=== PATIENT | female | born 1980 | race Caucasian/White ===

== ENCOUNTER 2018-11-09 05:39 | Inpatient (IN) | payer BC, OTHER ==
[~2018-11-09] VITALS: Ht 172.7 cm; Wt 86.4 kg
[~2018-11-09 05:39] MED LIST: IBUP-1222 PO; OXYC-302 PO; iron PO
[2018-11-09 05:45] VITALS: BP 112/63
[2018-11-09] MEDS ORDERED: LACTATED RINGERS 1,000 ML IV PRN (05:58)
[2018-11-09] MEDS ORDERED: MAGNESIUM SULF. PMX 20GM/500ML 500 ML IV ONE (06:00)
[2018-11-09] MEDS ORDERED: BETAMETHASONE 6 MG/ML, 5ML IM ONE (06:00)
[2018-11-09] MEDS: BETAMETHASONE 6 MG/ML, 5ML IM SCH (06:18)
[2018-11-09 06:33] LABS: BASOPHILS # (AUTO) 0.07 x10^3/uL (0-0.1); BASOPHILS % (AUTO) 1 % (0-1); EOSINOPHILS # (AUTO) 0.13 x10^3/uL (0-0.4); EOSINOPHILS % (AUTO) 2 % (1-7); LYMPHOCYTES # (AUTO) 1.79 x10^3/uL (1-3.4); LYMPHOCYTES % (AUTO) 21 % (22-44); MD NO; MEAN CORPUSCULAR HEMOGLOBIN 34.2 pg (27.0-34.8); MEAN CORPUSCULAR HGB CONC 35.5 g/dL (32.4-35.8); MEAN CORPUSCULAR VOLUME 96.5 fL (80-100); MEAN PLATELET VOLUME 6.9 fL (7.4-10.4); MONOCYTES # (AUTO) 0.47 x10^3/uL (0.2-0.8); MONOCYTES % (AUTO) 5 % (2-9); NEUTROPHILS # (AUTO) 6.28 x10^3/uL (1.8-6.8); NEUTROPHILS % (AUTO) 72 % (42-75); PLATELET COUNT 240 x10^3/uL (130-400); RED BLOOD COUNT 3.86 x10^6/uL (3.82-5.3); RED CELL DISTRIBUTION WIDTH 13.2 % (9.6-15.2)
[2018-11-09 06:38] LABS: INTERNATIONAL NORMALIZED RATIO 0.99 (0.93-1.1); PROTHROMBIN TIME 10.5 Seconds (9.6-11.5)
[2018-11-09] MEDS ORDERED: PLEASE ENTER HEIGHT AND WEIGHT MC SCH (07:00)
[2018-11-09] MEDS: LACTATED RINGERS 1,000 ML IV SCH ×2 (09:20→19:37)
[2018-11-09] MEDS ORDERED: ACETAMINOPHEN 325 MG TABLET ONE (17:47)
[2018-11-09] MEDS: ACETAMINOPHEN 325 MG TABLET PO PRN (17:48)
[2018-11-09 19:30] VITALS: BP 112/55
[2018-11-09] MEDS ORDERED: PRENATAL VIT/IRON/FA 1 EACH TABLET ONE (20:33)
[2018-11-09] MEDS ORDERED: FERROUS SULFATE 325 MG TABLET ONE (20:33)
[2018-11-09] MEDS: PRENATAL VIT/IRON/FA 1 EACH TABLET PO SCH (20:35)
[2018-11-09] MEDS: FERROUS SULFATE 325 MG TABLET PO SCH (20:35)
[2018-11-10] MEDS: BETAMETHASONE 6 MG/ML, 5ML IM SCH (06:21)
[2018-11-10] MEDS ORDERED: FERROUS SULFATE 325 MG TABLET ONE ×2 (08:15→20:10)
[2018-11-10] MEDS: FERROUS SULFATE 325 MG TABLET PO SCH ×2 (08:17→20:20)
[2018-11-10] MEDS ORDERED: ACETAMINOPHEN 325 MG TABLET ONE (19:04)
[2018-11-10] MEDS: ACETAMINOPHEN 325 MG TABLET PO PRN (19:14)
[2018-11-10] MEDS ORDERED: PRENATAL VIT/IRON/FA 1 EACH TABLET ONE (20:10)
[2018-11-10] MEDS: PRENATAL VIT/IRON/FA 1 EACH TABLET PO SCH (20:20)
[2018-11-10] MEDS ORDERED: ASPIRIN 81 MG TABLET CHEW PO SCH (21:00)
[2018-11-10] MEDS ORDERED: SODIUM CHLORIDE FLUSH 3ML SYRINGE IVF SCH (21:00)
[2018-11-11] MEDS ORDERED: FENTANYL/BUPIV./NS/PF 250 ML EPIDCONT SCH (07:44)
[2018-11-11] MEDS ORDERED: ASPI-515 PO (07:51)
[2018-11-11 08:25] VITALS: BP 108/63
[2018-11-11] MEDS ORDERED: ASPIRIN 81 MG TABLET CHEW PO SCH (09:00)
== END 2018-11-11 08:40 | disposition home or self-care (01) | DRG 833 ==
LOC: LDOP 05:39 → LDIP 06:01
PROVIDERS: ADMIT Obstetrics & Gynecology; ATTEND Obstetrics & Gynecology
PROC: 4A0HX4Z Measurement of Products of Conception, Cardiac Electrical Activity, External Approach (ICD-10-PCS; principal; 2018-11-09)
DX: O44.13 Complete placenta previa with hemorrhage, third trimester (principal); Z3A.28 28 weeks gestation of pregnancy
CPT/HCPCS: 36415; 85025; 85610; 85730; 86850; 86870; 86900; 86922; 86923; G0378; J0702; J7120

== ENCOUNTER 2019-01-05 16:48 | Outpatient (CLI) | payer OTHER ==
[~2019-01-05] VITALS: Ht 172.7 cm; Wt 93.2 kg
[~2019-01-05 16:48] MED LIST changes: +ASPI-515 PO
[2019-01-05 16:51] VITALS: BP 125/68
== END 2019-01-05 18:30 | disposition home or self-care (01) ==
LOC: LDOP 16:48
PROVIDERS: ATTEND Obstetrics & Gynecology
DX: O32.2XX0 Maternal care for transverse and oblique lie, not applicable or unspecified (principal); Z3A.36 36 weeks gestation of pregnancy
CPT/HCPCS: 59025; 76815; 99211; G0463

== ENCOUNTER 2019-01-10 05:11 | Inpatient (IN) | payer BC, OTHER ==
[~2019-01-10] VITALS: Ht 172.7 cm; Wt 93.2 kg
[2019-01-10] MEDS ORDERED: LACTATED RINGERS 1,000 ML IVBOLUS ONE (05:30)
[2019-01-10] MEDS ORDERED: METOCLOPRAMIDE 5 MG/ML, 2ML IV ONE (05:30)
[2019-01-10] MEDS ORDERED: SODIUM CITRATE/CITRIC ACID 30 ML UDC PO ONE (05:30)
[2019-01-10] MEDS ORDERED: NEWBORN KIT ONE (05:45)
[2019-01-10] MEDS ORDERED: METOCLOPRAMIDE 5 MG/ML, 2ML ONE (05:45)
[2019-01-10] MEDS ORDERED: OXYTOCIN 30U/ 0.9% NaCL 500ML 500 ML ONE (05:45)
[2019-01-10] MEDS ORDERED: SODIUM CITRATE/CITRIC ACID 30 ML UDC ONE (05:45)
[2019-01-10 05:47] LABS: BASOPHILS # (AUTO) 0.05 x10^3/uL (0-0.1); BASOPHILS % (AUTO) 1 % (0-1); EOSINOPHILS # (AUTO) 0.12 x10^3/uL (0-0.4); EOSINOPHILS % (AUTO) 1 % (1-7); LYMPHOCYTES # (AUTO) 1.63 x10^3/uL (1-3.4); LYMPHOCYTES % (AUTO) 20 % (22-44); MD NO; MEAN CORPUSCULAR HEMOGLOBIN 32.9 pg (27.0-34.8); MEAN CORPUSCULAR HGB CONC 34.1 g/dL (32.4-35.8); MEAN CORPUSCULAR VOLUME 96.6 fL (80-100); MEAN PLATELET VOLUME 6.8 fL (7.4-10.4); MONOCYTES # (AUTO) 0.55 x10^3/uL (0.2-0.8); MONOCYTES % (AUTO) 7 % (2-9); NEUTROPHILS # (AUTO) 5.86 x10^3/uL (1.8-6.8); NEUTROPHILS % (AUTO) 71 % (42-75); PLATELET COUNT 260 x10^3/uL (130-400); RED BLOOD COUNT 4.08 x10^6/uL (3.82-5.3); RED CELL DISTRIBUTION WIDTH 12.9 % (9.6-15.2)
[2019-01-10 06:14] VITALS: BP 114/68
[2019-01-10] MEDS ORDERED: morphine SULFATE/PF 0.5 MG/ML, 10ML ONE (07:30)
[2019-01-10] MEDS ORDERED: ONDANSETRON 2MG/ML, 2ML ONE (07:32)
[2019-01-10] MEDS ORDERED: OXYTOCIN 10 UNITS/ML, 1ML ONE (07:32)
[2019-01-10] MEDS ORDERED: DEXAMETHASONE 4 MG/ML, 1ML ONE (07:32)
[2019-01-10] MEDS ORDERED: CEFAZOLIN 1,000 MG ONE (07:33)
[2019-01-10] MEDS ORDERED: WATER-INJECTION,STERILE 10 ML IV ONE (07:33)
[2019-01-10] MEDS: LACTATED RINGERS 1,000 ML IV SCH ×5 (07:44→23:44)
[2019-01-10] MEDS ORDERED: MEASLES,MUMPS&RUBELLA VACC/PF 0.5 ML SQ-VACC PRN (08:00)
[2019-01-10] MEDS ORDERED: MISOPROSTOL 200 MCG TABLET PR PRN (08:00)
[2019-01-10] MEDS ORDERED: IBUPROFEN 600 MG TABLET PO PRN (08:00)
[2019-01-10] MEDS ORDERED: DIPH,PERTUSS(ACELL),TET VAC/PF NC IM-VACC PRN (08:00)
[2019-01-10] MEDS ORDERED: ACETAMINOPHEN 325 MG TABLET PO PRN ×2 (08:00)
[2019-01-10] MEDS ORDERED: CALCIUM CARBONATE 500 MG TAB.CHEW PO PRN (08:00)
[2019-01-10] MEDS ORDERED: ONDANSETRON 2MG/ML, 2ML IV PRN (08:00)
[2019-01-10] MEDS ORDERED: MEPERIDINE/PF 50 MG/ML ONE (08:52)
[2019-01-10] MEDS: PRENATAL VIT/IRON/FA 1 EACH TABLET PO SCH (09:00)
[2019-01-10] MEDS: OXYTOCIN 30U/ 0.9% NaCL 500ML 500 ML IV SCH ×2 (09:45→17:44)
[2019-01-10] MEDS ORDERED: OXYcodone/APAP 5/325MG TABLET ONE (10:11)
[2019-01-10] MEDS: OXYcodone/APAP 5/325MG TABLET PO PRN (10:15)
[2019-01-10 10:38] LABS: MEAN CORPUSCULAR HEMOGLOBIN 32.8 pg (27.0-34.8); MEAN CORPUSCULAR HGB CONC 34.3 g/dL (32.4-35.8); MEAN CORPUSCULAR VOLUME 95.8 fL (80-100); MEAN PLATELET VOLUME 6.8 fL (7.4-10.4); PLATELET COUNT 234 x10^3/uL (130-400); RED BLOOD COUNT 4.09 x10^6/uL (3.82-5.3); RED CELL DISTRIBUTION WIDTH 13.9 % (9.6-15.2)
[2019-01-10 11:20] LABS: BASOPHILS # (AUTO) 0.04 x10^3/uL (0-0.1); BASOPHILS % (AUTO) 0 % (0-1); EOSINOPHILS # (AUTO) 0.02 x10^3/uL (0-0.4); EOSINOPHILS % (AUTO) 0 % (1-7); LYMPHOCYTES # (AUTO) 0.77 x10^3/uL (1-3.4); LYMPHOCYTES % (AUTO) 6 % (22-44); MD SCAN; MONOCYTES # (AUTO) 0.15 x10^3/uL (0.2-0.8); MONOCYTES % (AUTO) 1 % (2-9); NEUTROPHILS % (AUTO) 93 % (42-75)
[2019-01-10 11:30] VITALS: BP 95/74
[2019-01-10] MEDS ORDERED: NO SEDATIVES, TRANQUILIZERS OR ANTIEMETICS XX SCH (12:00)
[2019-01-10] MEDS ORDERED: morphine SULFATE 10 MG/ML, 1ML IVPush PRN (12:00)
[2019-01-10] MEDS ORDERED: NALOXONE 0.4 MG/ML, 1ML IV PRN (12:00)
[2019-01-10] MEDS ORDERED: DIPHENHYDRAMINE 50 MG/ML, 1ML IV PRN (12:00)
[2019-01-10] MEDS: KETOROLAC 30 MG/1 ML IV SCH ×2 (13:07→20:02)
[2019-01-10 16:09] LABS: BASOPHILS # (AUTO) 0.05 x10^3/uL (0-0.1); BASOPHILS % (AUTO) 0 % (0-1); EOSINOPHILS # (AUTO) 0.05 x10^3/uL (0-0.4); EOSINOPHILS % (AUTO) 0 % (1-7); LYMPHOCYTES # (AUTO) 0.97 x10^3/uL (1-3.4); LYMPHOCYTES % (AUTO) 7 % (22-44); MD NO; MEAN CORPUSCULAR HEMOGLOBIN 33.2 pg (27.0-34.8); MEAN CORPUSCULAR HGB CONC 35.1 g/dL (32.4-35.8); MEAN CORPUSCULAR VOLUME 94.4 fL (80-100); MEAN PLATELET VOLUME 6.7 fL (7.4-10.4); MONOCYTES # (AUTO) 0.34 x10^3/uL (0.2-0.8); MONOCYTES % (AUTO) 2 % (2-9); NEUTROPHILS # (AUTO) 12.98 x10^3/uL (1.8-6.8); NEUTROPHILS % (AUTO) 90 % (42-75); PLATELET COUNT 257 x10^3/uL (130-400); RED BLOOD COUNT 3.75 x10^6/uL (3.82-5.3)
[2019-01-10 16:15] VITALS: BP 112/72
[2019-01-10 20:00] VITALS: BP 102/70
[2019-01-10 20:56] VITALS: BP 102/71
[2019-01-10] MEDS ORDERED: RHOGAM FROM BLOOD BANK 1 NOTE EA IM/IV ONE (21:30)
[2019-01-11 00:15] VITALS: BP 99/64
[2019-01-11] MEDS: DOCUSATE 100 MG CAPSULE PO PRN ×3 (01:14→19:50)
[2019-01-11] MEDS: OXYcodone/APAP 5/325MG TABLET PO PRN ×5 (01:14→22:00)
[2019-01-11] MEDS: KETOROLAC 30 MG/1 ML IV SCH ×4 (01:55→19:50)
[2019-01-11] MEDS: OXYTOCIN 30U/ 0.9% NaCL 500ML 500 ML IV SCH (03:44)
[2019-01-11] MEDS: LACTATED RINGERS 1,000 ML IV SCH (03:44)
[2019-01-11 04:00] VITALS: BP 96/58
[2019-01-11] MEDS: PRENATAL VIT/IRON/FA 1 EACH TABLET PO SCH (07:40)
[2019-01-11 08:00] VITALS: BP 97/70
[2019-01-11] MEDS: SIMETHICONE 80 MG CHEW TAB PO PRN (17:47)
[2019-01-11 20:00] VITALS: BP 117/76
[2019-01-12] MEDS: KETOROLAC 30 MG/1 ML IV SCH ×2 (03:10→08:49)
[2019-01-12] MEDS: OXYcodone/APAP 5/325MG TABLET PO PRN ×2 (03:15→08:49)
[2019-01-12] MEDS: SIMETHICONE 80 MG CHEW TAB PO PRN ×2 (03:15→08:49)
[2019-01-12 07:45] VITALS: BP 102/56
[2019-01-12] MEDS ORDERED: KETOROLAC 30 MG/1 ML ONE (08:42)
[2019-01-12] MEDS: PRENATAL VIT/IRON/FA 1 EACH TABLET PO SCH (08:49)
[2019-01-12] MEDS: DOCUSATE 100 MG CAPSULE PO PRN (08:49)
[2019-01-12] MEDS ORDERED: PREN1TAB98 PO (11:48)
[2019-01-12] MEDS ORDERED: DOCU-131 PO (11:49)
[2019-01-12] MEDS ORDERED: IBUP-1223 PO (11:52)
[2019-01-12] MEDS ORDERED: OXYC-302 PO (11:53)
== END 2019-01-12 14:10 | disposition home or self-care (01) | DRG 787 ==
LOC: LDIP 05:11 → 2NW 11:09
PROVIDERS: ADMIT Obstetrics & Gynecology; ATTEND Obstetrics & Gynecology
PROC: 10D00Z1 Extraction of Products of Conception, Low, Open Approach (ICD-10-PCS; principal; 2019-01-10)
PROC: 0UB90ZZ Excision of Uterus, Open Approach (ICD-10-PCS; 2019-01-10)
PROC: 30233S1 Transfusion of Nonautologous Globulin into Peripheral Vein, Percutaneous Approach (ICD-10-PCS; 2019-01-10)
PROC: 30233N1 Transfusion of Nonautologous Red Blood Cells into Peripheral Vein, Percutaneous Approach (ICD-10-PCS; 2019-01-10)
DX: O32.1XX0 Maternal care for breech presentation, not applicable or unspecified (principal); O44.03 Complete placenta previa NOS or without hemorrhage, third trimester; Z3A.36 36 weeks gestation of pregnancy; Z79.82 Long term (current) use of aspirin; Z87.59 Personal history of other complications of pregnancy, childbirth and the puerperium; O43.213 Placenta accreta, third trimester
CPT/HCPCS: 36415; J2790; 85025; 85461; 86850; 86900; 86923; 88305; 88307; G0378; J0690; J1100; J1885; J2274; J2405; J2590; J2765; J7120; P9016